=== PATIENT | male | born 1975 | race Caucasian/White ===

== ENCOUNTER → 2017-08-26 | Outpatient (REF) | payer BC ==
[2017-08-26 11:10] LABS: IMMOTILE SPERM ABSENT (ABSENT); MOTILE SPERM ABSENT (ABSENT); MOTILE SPERM CENTRIFUGED ABSENT (ABSENT)
[2017-08-26 11:11] LABS: IMMMOTILE SPERM CENTRIFUGED ABSENT (ABSENT)
== END ==
LOC: M LAB REF 10:26
PROVIDERS: ATTEND Urology
DX: Z30.2 Encounter for sterilization (principal)

== ENCOUNTER → 2017-10-24 | Outpatient (CLI) | payer BC ==
[2017-10-24 14:01] LABS: ANION GAP 7 MEQ/L (8-16); BLOOD UREA NITROGEN 12 MG/DL (7-18); CARBON DIOXIDE LEVEL 29 MEQ/L (21-32); CHLORIDE LEVEL 105 MEQ/L (98-107); CREATININE FOR GFR 1.09 MG/DL (0.70-1.30); GLOMERULAR FILTRATION RATE > 60.0 (>60); GLUCOSE, FASTING 108 MG/DL (70-105); POTASSIUM SERUM 4.1 MEQ/L (3.5-5.1); SODIUM LEVEL 141 MEQ/L (136-145); URIC ACID 5.2 MG/DL (3.5-7.2)
== END ==
LOC: M WUC 09:23
PROVIDERS: ATTEND Nurse Practitioner
DX: N20.0 Calculus of kidney (principal)

== ENCOUNTER → 2018-09-02 | Outpatient (CLI) | payer OTHER ==
[2018-09-02 13:50] LABS: BASO # 0.1 10^3/uL (0.0-0.2); BASO % 0.9 % (0.0-1.0); EOS # 0.1 10^3/uL (0.0-0.50); EOS % 1.3 % (0.0-3.0); HEMATOCRIT 45.7 % (42.0-52.0); HEMOGLOBIN 15.4 g/dl (13.5-17.5); IMMATURE GRANULOCYTE % 0.1 % (0-3.0); LYMPH % 42.4 % (24.0-44.0); MEAN CORPUSCULAR HEMOGLOBIN 30.5 pg (27.0-33.0); MEAN CORPUSCULAR HGB CONC 33.7 g/dl (32.0-36.5); MEAN CORPUSCULAR VOLUME 90.5 fl (80.0-96.0); MONO # 0.7 10^3/uL (0.0-0.8); MONO % 10.1 % (0.0-5.0); NEUTROPHILS # 3.2 10^3/uL (1.8-7.7); NEUTROPHILS % 45.2 % (36.0-66.0); PLATELET COUNT, AUTOMATED 282 10^3/uL (150-450); RED BLOOD COUNT 5.05 10^6/uL (4.30-6.10); RED CELL DISTRIBUTION WIDTH 12.3 % (11.5-14.5); WHITE BLOOD COUNT 7.1 10^3/uL (4.0-10.0)
[2018-09-02 14:01] LABS: ALBUMIN 4.1 GM/DL (3.2-5.2); ALBUMIN/GLOBULIN RATIO 1.28 (1.00-1.93); ALKALINE PHOSPHATASE 44 U/L (45-117); ALT/SGPT 42 U/L (12-78); ANION GAP 5 MEQ/L (8-16); AST/SGOT 21 U/L (7-37); BILIRUBIN,TOTAL 0.8 MG/DL (0.2-1.0); BLOOD UREA NITROGEN 12 MG/DL (7-18); CALCIUM LEVEL 9.4 MG/DL (8.5-10.1); CARBON DIOXIDE LEVEL 30 MEQ/L (21-32); CHLORIDE LEVEL 106 MEQ/L (98-107); CREATININE FOR GFR 1.01 MG/DL (0.70-1.30); GLOMERULAR FILTRATION RATE > 60.0 (>60); GLUCOSE, FASTING 97 MG/DL (70-100); POTASSIUM SERUM 4.6 MEQ/L (3.5-5.1); PROSTATIC SPECIFIC AG MONITOR 0.84 NG/ML (< 4.0); SODIUM LEVEL 141 MEQ/L (136-145); TOTAL PROTEIN 7.3 GM/DL (6.4-8.2)
== END ==
LOC: M WUC 09:09
DX: Z12.5 Encounter for screening for malignant neoplasm of prostate (principal)
CPT/HCPCS: 80053

== ENCOUNTER → 2018-09-10 | Outpatient (CLI) | payer OTHER ==
[2018-09-10 11:17] LABS: CHOLESTEROL LEVEL 198 MG/DL (<200); CHOLESTEROL RISK RATIO 5.657 (<5); HDL CHOLESTEROL 35 MG/DL (>40); LDL CHOLESTEROL 116 MG/DL (<100); NON-HDL-C 163 MG/DL; TRIGLYCERIDES LEVEL 236 MG/DL (<150)
== END ==
LOC: M WUC 09:12
DX: Z00.00 Encounter for general adult medical examination without abnormal findings (principal)

== ENCOUNTER → 2019-10-19 | Outpatient (CLI) | payer OTHER ==
[2019-10-19 13:23] LABS: BASO # 0.1 10^3/uL (0.0-0.2); BASO % 0.8 % (0.0-1.0); EOS # 0.1 10^3/uL (0.0-0.5); EOS % 1.4 % (0.0-3.0); HEMATOCRIT 47.3 % (42.0-52.0); HEMOGLOBIN 15.6 g/dl (13.5-17.5); LYMPH # 2.7 10^3/uL (1.5-5.0); LYMPH % 38.6 % (24.0-44.0); MEAN CORPUSCULAR HEMOGLOBIN 30.6 pg (27.0-33.0); MEAN CORPUSCULAR VOLUME 92.9 fl (80.0-96.0); MONO # 0.8 10^3/uL (0.0-0.8); MONO % 10.7 % (0.0-5.0); NEUTROPHILS # 3.4 10^3/uL (1.5-8.5); NEUTROPHILS % 48.4 % (36.0-66.0); PLATELET COUNT, AUTOMATED 295 10^3/uL (150-450); RED BLOOD COUNT 5.09 10^6/uL (4.30-6.10); WHITE BLOOD COUNT 7.1 10^3/uL (4.0-10.0)
[2019-10-19 13:30] LABS: ALT/SGPT 44 U/L (12-78); BILIRUBIN,TOTAL 0.7 MG/DL (0.2-1.0); BLOOD UREA NITROGEN 14 MG/DL (7-18); CALCIUM LEVEL 9.3 MG/DL (8.5-10.1); CARBON DIOXIDE LEVEL 31 MEQ/L (21-32); CHLORIDE LEVEL 107 MEQ/L (98-107); CHOLESTEROL LEVEL 213 MG/DL (<200); CHOLESTEROL RISK RATIO 5.071 (<5); CREATININE FOR GFR 1.07 MG/DL (0.70-1.30); GLOMERULAR FILTRATION RATE > 60.0 (>60); GLUCOSE, FASTING 101 MG/DL (70-100); HDL CHOLESTEROL 42 MG/DL (>40); LDL CHOLESTEROL 131 MG/DL (<100); NON-HDL-C 171 MG/DL; POTASSIUM SERUM 4.4 MEQ/L (3.5-5.1); PROSTATIC SPECIFIC AG MONITOR 1.17 NG/ML (< 4.00); SODIUM LEVEL 142 MEQ/L (136-145); TOTAL PROTEIN 7.6 GM/DL (6.4-8.2); TRIGLYCERIDES LEVEL 200 MG/DL (<150)
== END ==
LOC: M WUC 10:05
PROVIDERS: ATTEND Family Medicine
DX: Z00.00 Encounter for general adult medical examination without abnormal findings (principal); Z12.5 Encounter for screening for malignant neoplasm of prostate

== ENCOUNTER → 2020-05-10 | Outpatient (CLI) | payer OTHER ==
--- NOTE | 2020-05-23 14:13 | SLEEPCENT ---
DATE OF STUDY: 05/10/2020 ORDERED BY: Manule Griffin Nocturnal polysomnography was performed for evaluation of sleep physiology in this patient with a history of excessive somnolence and abnormal nocturnal oximetry. 8 hours and 21 minutes of data were reviewed. There were 408 minutes of sleep identified. Sleep latency was normal at 12.5 minutes. REM latency was normal at 70 minutes. Sleep architecture was fair, but there was significant fragmentation seen. Periods of wake resulted in a reduced sleep efficiency of 82.3% and there were 3 REM cycles noted. The patient's electrocardiogram showed a sinus rhythm with an average heart rate of 56 beats per minute, rate ranged 42-82. Electroencephalogram (EEG) showed normal waveforms for awake and sleep. There were 75 respiratory events identified of 10 seconds in duration or greater for an apnea-hypopnea index of 11. The events were obstructive, not exclusive to sleep stage and not exclusive to body posture. Arousals from respiratory events occurred 7.3 times per hour and oxygen desaturations were seen into the 80s. Remaining measures of sleep physiology were normal. IMPRESSION: Obstructive sleep apnea syndrome (G47.33). Apnea-hypopnea index 11. RECOMMENDATION: The patient should be encouraged to return to the sleep disorder center for pressure therapy. In the interim, alcohol and sedative avoidance should be practiced and caution exercised during the operation of motor vehicles.
== END ==
LOC: M SLEEP 20:00
PROVIDERS: ATTEND Physician Assistant
DX: G47.33 Obstructive sleep apnea (adult) (pediatric) (principal)

== ENCOUNTER → 2020-06-07 | Outpatient (CLI) | payer OTHER ==
--- NOTE | 2020-07-24 07:22 | SLEEPCENT ---
DATE: 06/07/2020 ORDERED BY: Eduard Griffin Nocturnal polysomnography was performed for the titration of pressure therapy in this patient with obstructive sleep apnea syndrome, apnea-hypopnea index of 11. For testing, patient was fit with a ResMed AirFit F20 full-face mask of medium size. There was 4 cm of water pressure applied to the circuit, and the lights were extinguished. There was 7 hours and 19 minutes of data reviewed. There was 290 minutes of sleep identified. Sleep latency was mildly prolonged at 23 minutes. REM latency was normal at 94 minutes. Sleep architecture was good with three REM cycles. Improvement was seen on optimal pressure therapy. Overall sleep efficiency was 68.5%. The patient's electrocardiogram showed a sinus rhythm with an average heart rate of 48 beats per minute. Rate ranged 42-72. EEG showed reasonably normal waveforms for wake and sleep, some minor EKG bleed-through. Respiratory events persisted, prompting an increase in CPAP pressure to the optimal pressure of +10, with which the patient slept through REM without respiratory event or oxygen desaturation. Remaining measures of sleep physiology was normal. IMPRESSION: Obstructive sleep apnea syndrome (G47.33). RECOMMENDATION: Nightly use of pressure therapy, 10 cm of water. /kaylee Hathaway edited: 09/06/2020 [id number]
== END ==
LOC: M SLEEP 20:00
PROVIDERS: ATTEND Physician Assistant
DX: G47.33 Obstructive sleep apnea (adult) (pediatric) (principal)

== ENCOUNTER → 2020-10-19 | Outpatient (CLI) | payer OTHER ==
[2020-10-19 11:07] LABS: BASO # 0.1 10^3/uL (0.0-0.2); EOS # 0.1 10^3/uL (0.0-0.5); EOS % 2.3 % (0.0-3.0); HEMATOCRIT 44.7 % (42.0-52.0); HEMOGLOBIN 14.8 g/dl (13.5-17.5); LYMPH # 2.5 10^3/uL (1.5-5.0); LYMPH % 41.5 % (24.0-44.0); MEAN CORPUSCULAR HEMOGLOBIN 30.1 pg (27.0-33.0); MEAN CORPUSCULAR HGB CONC 33.1 g/dl (32.0-36.5); MEAN CORPUSCULAR VOLUME 90.9 fl (80.0-96.0); MONO # 0.7 10^3/uL (0.0-0.8); MONO % 11.4 % (0.0-5.0); NEUTROPHILS # 2.7 10^3/uL (1.5-8.5); NEUTROPHILS % 43.6 % (36.0-66.0); PLATELET COUNT, AUTOMATED 272 10^3/uL (150-450); RED BLOOD COUNT 4.92 10^6/uL (4.30-6.10); WHITE BLOOD COUNT 6.1 10^3/uL (4.0-10.0)
[2020-10-19 11:44] LABS: ALBUMIN 3.9 GM/DL (3.2-5.2); ALT/SGPT 53 U/L (12-78); BILIRUBIN,TOTAL 0.8 MG/DL (0.2-1.0); BLOOD UREA NITROGEN 15 MG/DL (7-18); CALCIUM LEVEL 9.1 MG/DL (8.5-10.1); CARBON DIOXIDE LEVEL 30 MEQ/L (21-32); CHLORIDE LEVEL 107 MEQ/L (98-107); CHOLESTEROL LEVEL 227 MG/DL (<200); CHOLESTEROL RISK RATIO 5.404 (<5); CREATININE FOR GFR 1.13 MG/DL (0.70-1.30); GLOMERULAR FILTRATION RATE > 60.0 (>60); GLUCOSE, FASTING 102 MG/DL (70-100); HDL CHOLESTEROL 42 MG/DL (>40); LDL CHOLESTEROL 148 MG/DL (<100); NON-HDL-C 185 MG/DL; POTASSIUM SERUM 4.4 MEQ/L (3.5-5.1); SODIUM LEVEL 141 MEQ/L (136-145); TOTAL PROTEIN 7.2 GM/DL (6.4-8.2); TRIGLYCERIDES LEVEL 184 MG/DL (<150)
== END ==
LOC: M WUC 09:34
PROVIDERS: ATTEND Family Medicine
DX: Z00.00 Encounter for general adult medical examination without abnormal findings (principal); Z12.5 Encounter for screening for malignant neoplasm of prostate

== ENCOUNTER → 2023-01-13 | Outpatient (CLI) | payer OTHER ==
[2023-01-13 12:17] LABS: BASO # 0.1 10^3/uL (0.0-0.2); BASO % 0.9 % (0.0-1.0); EOS # 0.1 10^3/uL (0.0-0.5); EOS % 1.2 % (0.0-3.0); HEMOGLOBIN 15.6 g/dl (13.5-17.5); LYMPH # 2.5 10^3/uL (1.5-5.0); LYMPH % 37.2 % (24.0-44.0); MEAN CORPUSCULAR HGB CONC 33.9 g/dl (32.0-36.5); MEAN CORPUSCULAR VOLUME 91.3 fl (80.0-96.0); MONO # 0.7 10^3/uL (0.0-0.8); NEUTROPHILS # 3.4 10^3/uL (1.5-8.5); NEUTROPHILS % 50.6 % (36.0-66.0); PLATELET COUNT, AUTOMATED 271 10^3/uL (150-450); RED BLOOD COUNT 5.04 10^6/uL (4.30-6.10); WHITE BLOOD COUNT 6.8 10^3/uL (4.0-10.0)
[2023-01-13 12:28] LABS: ALBUMIN 3.9 G/DL (3.2-5.2); ALKALINE PHOSPHATASE 47 U/L (46-116); ALT/SGPT 47 U/L (7.0-40); AST/SGOT 24 U/L (<34); BILIRUBIN,TOTAL 0.8 MG/DL (0.3-1.2); BLOOD UREA NITROGEN 11 MG/DL (9-23); CALCIUM LEVEL 8.9 MG/DL (8.5-10.1); CARBON DIOXIDE LEVEL 30 MMOL/L (20-31); CHLORIDE LEVEL 103 MMOL/L (98-107); CHOLESTEROL LEVEL 195 MG/DL (<200); CHOLESTEROL RISK RATIO 5.15 (<5); CREATININE FOR GFR 1.05 MG/DL (0.70-1.30); GLOMERULAR FILTRATION RATE > 60.0 (>60); GLUCOSE, FASTING 99 MG/DL (60-100); HDL CHOLESTEROL 37.8 MG/DL (>40); NON-HDL-C 157 MG/DL; POTASSIUM SERUM 4.2 MMOL/L (3.5-5.1); PROSTATIC SPECIFIC AG MONITOR 0.96 NG/ML (< 4.00); SODIUM LEVEL 141 MMOL/L (136-145); TOTAL PROTEIN 7.2 G/DL (5.7-8.2); TRIGLYCERIDES LEVEL 256 MG/DL (<150)
== END ==
LOC: M WUC 09:50
PROVIDERS: ATTEND Family Medicine
DX: Z00.00 Encounter for general adult medical examination without abnormal findings (principal); Z12.5 Encounter for screening for malignant neoplasm of prostate

== ENCOUNTER → 2023-03-07 | Outpatient (REF) | payer OTHER | LOC: M LAB REF 16:29 | PROVIDERS: ATTEND Surgery | DX: D03.59 Melanoma in situ of other part of trunk (principal); L98.429 Non-pressure chronic ulcer of back with unspecified severity; L90.5 Scar conditions and fibrosis of skin; L98.6 Other infiltrative disorders of the skin and subcutaneous tissue ==

== ENCOUNTER → 2023-05-06 | Outpatient (REF) | payer OTHER | LOC: M LAB REF 15:58 | PROVIDERS: ATTEND Surgery | DX: C43.59 Malignant melanoma of other part of trunk (principal) ==